=== PATIENT | female | born 1975 | race Caucasian/White ===

== ENCOUNTER 2022-12-12 09:58 | Day surgery (SDC) | payer OTHER ==
[~2022-12-12 09:58] MED LIST: Albuterol 0.083% 2.5 MG/3 ML Neb Soln NEB PRN; HYDROmorphone 1 MG/ML Syringe IVPUSH PRN; Lactated Ringers 1,000 ML IV SCH; Metoclopramide 10 MG/2 ML SDV IVPUSH PRN; Morphine 2 MG/ML SYRINGE IVPUSH PRN; Naloxone 0.4 MG/ML SDV IVPUSH PRN; Ondansetron 4 MG/2 ML SDV IVPUSH PRN; fentaNYL 50 MCG/ML SDV IVPUSH PRN
[2022-12-12] MEDS ORDERED: Ondansetron 4 MG/2 ML SDV ONE (10:21)
[2022-12-12] MEDS ORDERED: Propofol 200 MG/20 ML SDV ONE (10:21)
[2022-12-12] MEDS ORDERED: fentaNYL 100 MCG/2 ML SDV ONE (10:21)
[2022-12-12] MEDS ORDERED: Dexamethasone 4 MG/ML 5 ML MDV ONE (10:21)
[2022-12-12] MEDS ORDERED: Lidocaine 2% 5 ML SDV ONE (10:21)
[2022-12-12] MEDS ORDERED: Ketorolac 30 MG/ML SDV ONE (10:21)
== END 2022-12-12 12:50 | disposition home or self-care (01) ==
LOC: MW.SDS 09:58
PROVIDERS: ATTEND Obstetrics & Gynecology
DX: N93.9 Abnormal uterine and vaginal bleeding, unspecified (principal); N84.0 Polyp of corpus uteri; D64.9 Anemia, unspecified; M19.90 Unspecified osteoarthritis, unspecified site; J45.909 Unspecified asthma, uncomplicated; Z79.899 Other long term (current) drug therapy; Z98.890 Other specified postprocedural states; Z91.040 Latex allergy status; Z88.6 Allergy status to analgesic agent
CPT/HCPCS: 58558; J1100; J1885; J2405; J2704; J3010; J7120; J3490